=== PATIENT | male | born 1975 | race Caucasian/White ===

== ENCOUNTER 2023-08-08 04:47 | Day surgery (SDC) | payer OTHER ==
[2023-08-08] VITALS (230 sets, daily range): BP systolic 79–146; BP diastolic 42–94
[~2023-08-08] VITALS: Ht 182.9 cm; Wt 83.0 kg
[2023-08-08 08:17] LABS: BASO% 0.5 % (0-3); EOS% 8.5 % (0-8); HEMATOCRIT 41.9 % (39.0-50.0); HEMOGLOBIN 14.3 g/dl (14.0-18.0); IMMATURE GRANULOCYTES 0.2 % (0.0-5.0); LYMPH% 39.2 % (15-41); MEAN CELL VOLUME 85.5 fL CALC (80.0-100.0); MEAN CORPUSCULAR HGB 29.2 pG CALC (26.0-32.0); MEAN CORPUSCULAR HGB CONC 34.1 g/dL CAL (32.0-36.0); MONO% 8.1 % (2-13); NEUT# 3.78 thou/uL (1.82-7.42); NEUT% 43.5 % (42-76); RED BLOOD COUNT 4.9 mill/uL (4.70-6.10); RED CELL DISTRI WIDTH 12.9 % (11.5-15.5)
[2023-08-08 08:38] LABS: ALBUMIN 4.2 g/dL (3.2-5.0); ALKALINE PHOSPHATASE 58 u/l (38-126); ANION GAP 9 (6-22 (CALC)); BILIRUBIN, TOTAL 0.4 mg/dL (0.2-1.3); BUN 16 mg/dL (9-20); BUN/CREATININE RATIO 17 (12-20 (CALC)); CARBON DIOXIDE 30 mmol/l (22-30); CHLORIDE 103 mmol/l (95-108); GFR FOR AFR.AMER. > 60 ML/MIN (>=60 (CALC)); GFR OTHER RACES > 60 ML/MIN (>=60 (CALC)); POTASSIUM 3.7 mmol/l (3.5-5.1); SGOT/AST 35 u/l (17-59); SODIUM 138 mmol/l (137-146); TOTAL PROTEIN 7.1 g/dL (6.3-8.2)
[2023-08-08] MEDS ORDERED: NEBIVOLOL PO (08:47)
[2023-08-08] MEDS ORDERED: ROSUVASTATIN CAL5 MG PO (08:48)
[2023-08-08] MEDS ORDERED: NALTREXONE50 MG PO (15:24)
[2023-08-08] MEDS ORDERED: CLONIDINE0.1 MG PO (15:27)
[2023-08-08] MEDS ORDERED: KLONOPIN2 MG PO (15:27)
[2023-08-09 03:29] VITALS: BP 122/68
[2023-08-09 03:56] LABS: BASO% 0.1 % (0-3); EOS% 0.1 % (0-8); HEMATOCRIT 37.5 % (39.0-50.0); HEMOGLOBIN 13.1 g/dl (14.0-18.0); IMMATURE GRANULOCYTES 0.3 % (0.0-5.0); LYMPH% 10.6 % (15-41); MEAN CORPUSCULAR HGB CONC 34.9 g/dL CAL (32.0-36.0); MONO% 2.9 % (2-13); NEUT# 9.37 thou/uL (1.82-7.42); RED BLOOD COUNT 4.52 mill/uL (4.70-6.10); RED CELL DISTRI WIDTH 12.5 % (11.5-15.5)
[2023-08-09 03:57] LABS: ALBUMIN 3.6 g/dL (3.2-5.0); ALKALINE PHOSPHATASE 53 u/l (38-126); BUN 12 mg/dL (9-20); BUN/CREATININE RATIO 19 (12-20 (CALC)); CHLORIDE 106 mmol/l (95-108); CREATININE 0.7 mg/dL (0.7-1.3); GFR FOR AFR.AMER. > 60 ML/MIN (>=60 (CALC)); GFR OTHER RACES > 60 ML/MIN (>=60 (CALC)); MAGNESIUM 1.8 mg/dL (1.6-2.3); POTASSIUM 3.9 mmol/l (3.5-5.1); SGOT/AST 37 u/l (17-59); SODIUM 135 mmol/l (137-146); TOTAL PROTEIN 6.1 g/dL (6.3-8.2)
[2023-08-09 04:11] LABS: ANION GAP 11 (6-22 (CALC)); BILIRUBIN, TOTAL 0.7 mg/dL (0.2-1.3); CARBON DIOXIDE 22 mmol/l (22-30)
[2023-08-09 08:47] VITALS: BP 131/84
[2023-08-09 09:22] VITALS: BP 131/84
== END 2023-08-09 16:52 | disposition home or self-care (01) | DRG 897 ==
LOC: ANR 04:47 → MS2 04:50 → ANR 08:00 → MS2 18:02 → ANR 08-09 16:52
PROVIDERS: ATTEND Anesthesiology Critical Care Medicine
DX: F11.20 Opioid dependence, uncomplicated (principal)
CPT/HCPCS: J0131; J2060; J2354; J3475